=== PATIENT | male | born 1970 | race Caucasian/White ===

== ENCOUNTER 2018-09-13 03:27 | Day surgery (SDC) | payer BC ==
[~2018-09-13] VITALS: Ht 177.8 cm; Wt 104.8 kg
[~2018-09-13 03:27] MED LIST: ATOR20TA65 PO; ATR80PT PO; CALCIUM; FISH OIL; LISI5TAB25 PO; VITAMIN B; ZINC
[2018-09-13 07:38] VITALS: BP 132/88
[2018-09-13] MEDS ORDERED: NORMOSOL R SOLN(*) 1000 ML BAG 1,000 ML IV PRN (08:00)
[2018-09-13] MEDS ORDERED: LIDOCAINE/SOD BICARB 8.4% SYR ID ONE (08:00)
[2018-09-13] MEDS ORDERED: LIDOCAINE MPF 1% 5 ML VIAL ONE (08:42)
[2018-09-13] MEDS ORDERED: PROPOFOL EMUL(*) 10MG/ML 20 ML 40 ML ONE (08:42)
[2018-09-13 09:08] VITALS: BP 94/64
[2018-09-13 09:15] VITALS: BP 98/58
--- NOTE | 2018-09-13 09:18 | Short(Outpt) Discharge Summary ---
Discharge Summary Reason for Hosp/Final Diag: (1) Blood per rectum Hospital Course & Plan: pt presented for colonoscopy. he tolerated the procedure well. he will be discharged home when criteria met. Discharge Instructions Home Meds Reported Medications Atorvastatin Calcium (ATORVASTATIN CALCIUM) 20 Mg Tablet, 1 TAB PO QHS, TAB 09/06/18 Lisinopril (LISINOPRIL) 5 Mg Tablet, 2 TAB PO QDAY, TAB 08/15/18 Discontinued Reported Medications Atorvastatin (LIPITOR) 80 Mg Tab, 40 MG PO QDAY, TAB 08/15/18 Diet: Regular Activity: As Tolerated Special Instructions: we will call you in 10 days with results SERGIO MALONEY Sep 13, 2018 09:18
[2018-09-13 09:30] VITALS: BP 102/71
--- NOTE | 2018-09-13 09:34 | NUR ---
AROUSES REORIENTED TO TIME AND PLACE. O2 DC'D. REPORTS HE IS A LITTLE SORE IN THE RECTUM. PAIN IS TOLERABLE.
[2018-09-13 09:53] VITALS: BP 109/88
[2018-09-13 09:55] VITALS: BP 120/88
--- NOTE | 2018-09-13 10:28 | NUR ---
0940- SBAR RECEIVED FROM YANIV VITAL. 0955- PT. STATES THAT HE IS READY TO GO HOME SO ORTHOSTATICS PREFORMED. PT. DENIED ANY LIGHTHEADEDNESS OR DIZZINESS. 0958- PT. GETTING DRESSED. 1005- DR. MALONEY AT BEDSIDE. 1010- DC'D IV WITH CATH INTACT AND PRESSURE DRESSING APPLIED. 1015- WENT OVER DISCHARGE INSTRUCTIONS WITH PT AND . THEY STATED UNDERSTANDING AND ALL QUESTIONS ANSWERED. 1019- ACOMPANIED PT. AND TO VEHICLE. SEE DISCHARGE ASSESSMENT.
== END 2018-09-13 10:19 | disposition home or self-care (01) ==
LOC: OR 03:27
PROVIDERS: ATTEND Surgery
DX: D12.4 Benign neoplasm of descending colon (principal); K64.8 Other hemorrhoids
CPT/HCPCS: 00811; 45385; 88305; J2001; J2704